=== PATIENT | female | born 1995 | race Caucasian/White ===

== ENCOUNTER 2019-01-19 21:20 | Emergency (ER) | payer OTHER ==
[~2019-01-19] VITALS: Ht 175.3 cm; Wt 127.3 kg
[2019-01-19 21:43] VITALS: Ht 175.3 cm; Wt 127.3 kg
[2019-01-19] MEDS ORDERED: PROTONIX40 MG PO (21:45)
[2019-01-19] MEDS ORDERED: FLOVENT DISKU250 MCG INH (21:46)
[2019-01-19] MEDS ORDERED: ALBUTEROL SULF8.5 GM INH (21:46)
[2019-01-19 22:09] LABS: BASOPHILS 0.3 % (0-2); EOSINOPHILS 3.7 % (0-7); HEMATOCRIT 40.8 % (36.0-48.0); HEMOGLOBIN 13.4 g/dL (12-16); IMMATURE GRANULOCYTES 0.3 % (0-5); LYMPHOCYTES 32.2 % (15-50); MCH 25.3 pg (26.0-34.0); MCHC 32.8 g/dL (31.0-37.0); MEAN PLATELET VOLUME 9.7 fL (7.4-10.4); MONOCYTES 6.7 % (2-11); NEUTROPHILS 56.8 % (40-80); PLATELET COUNT 323 10x3/uL (130-400); RDW 14.1 % (11.5-14.5); WBC 15.3 10x3/uL (4.8-10.8)
[2019-01-19 22:18] LABS: APPEARANCE CLEAR (CLEAR); BILIRUBIN NEGATIVE (NEGATIVE); COLOR YELLOW (YELLOW); GLUCOSE NEGATIVE (NEGATIVE); KETONE NEGATIVE (NEGATIVE); NITRITE NEGATIVE (NEGATIVE); PROTEIN NEGATIVE (NEGATIVE); UROBILINOGEN NORMAL (NORMAL)
[2019-01-19 22:19] LABS: HCG URINE NEGATIVE (NEGATIVE)
[2019-01-19 22:26] LABS: ALBUMIN 3.8 g/dL (3.4-5.0); ALKALINE PHOSPHATASE 121 U/L (46-116); ALT (SGPT) 24 U/L (10-68); BILIRUBIN - TOTAL 0.29 mg/dL (0.2-1.3); CALC OSMOLALITY 275 mosm/kg (275-300); CALCIUM 8.9 mg/dL (8.5-10.1); CARBON DIOXIDE 23.7 mmol/L (21.0-32.0); CHLORIDE - SERUM 102 mmol/L (98-107); CREATININE - SERUM 0.8 mg/dL (0.6-1.3); GLUCOSE 88 mg/dL (74-106); POTASSIUM - SERUM 3.8 mmol/L (3.5-5.1); PROTEIN - SERUM 8.3 g/dL (6.4-8.2); SODIUM 139 mmol/L (136-145); UREA NITROGEN 9 mg/dL (7-18); eGFR NON AFRICAN AMERICAN > 90 mL/min (90-120)
[2019-01-19 22:28] LABS: AMYLASE - SERUM 21 U/L (25-115); LIPASE 74 U/L (73-393)
[2019-01-19 22:29] LABS: TROPONIN-I < 0.017 ng/mL (0.000-0.060)
[2019-01-20] MEDS ORDERED: ZOFRAN ODT4 MG/UDTAB PO (01:01)
[2019-01-20 01:12] VITALS: BP 133/84
== END 2019-01-20 01:12 | disposition home or self-care (01) ==
LOC: D.ER 21:20
PROVIDERS: Family Medicine
DX: F10.11 Alcohol abuse, in remission (principal)